=== PATIENT | male | born 1970 | race Caucasian/White ===

== ENCOUNTER 2018-08-18 05:14 | Observation (INO) ==
[2018-08-18] MEDS ORDERED: Nitroglycerin 0.4 MG TAB.SUBL SL PRN (05:20)
--- NOTE | 2018-08-18 05:25 | Emergency Department Note ---
Disposition Clinical Impression: Inferior ST segment depression, Elevated troponin Chest pain Qualifiers: Chest pain type: unspecified Qualified Code(s): R07.9 - Chest pain, unspecified Disposition: Admitted As Inpatient Condition: Fair Time of Disposition: 05:32 Chest Pain HPI - General Chief Complaint: ED Chest Pain Stated Complaint: chest pain Time Seen by Provider: 08/18/18 05:20 Vital Signs Reviewed: Yes Nursing Notes Reviewed: Yes - History of Present Illness HPI Narrative: 47-year-old male presents from home via prolonged EMS ride for evaluation of chest pain. Patient has a single episode of chest pain yesterday described as chest heaviness with dyspnea and diaphoresis. This occurred at 3 PM yesterday while working outside. It lasted approximately 15 minutes and was relieved with rest. This morning at 3 AM (2.5 hours prior to arrival), he awoke from sleep with intense sternal chest heaviness with associated dyspnea and diaphoresis. Improved with some liquid nitroglycerin 2 provided by squad as well as full dose aspirin provided by squad. He still has mild chest pain at this time. PMH: Hyperlipidemia No history of CAD or ACS, hypertension, or diabetes Habits: Currently smoker Family history: No history of ND to his knowledge his family ROS: Positive: Chest heaviness, dyspnea, diaphoresis Negative: Fever, chills, nausea, vomiting, palpitations, abdominal pain, arm pain, jaw pain, unusual back pain - Related Data Allergies Allergy/AdvReac Type Severity Reaction Status Date / Time No Known Allergies Allergy Verified 08/18/18 05:17 All systems ED: reviewed and negative except as stated. Review of Systems: As Per HPI Physical Exam Vital Signs Reviewed General: Patient is alert, oriented, and in no acute distress. Head: atraumatic, normocephalic Eye: normal appearance, PERRL, EOMI, no scleral icterus, no conjunctival i njection ENT: mucous membranes moist, normal external ear exam Neck: normal inspection, trachea midline, full ROM Chest: normal inspection, symmetric chest rise Respiratory: Good respiratory effort. Bilateral breath sounds are clear without wheezing, crackles, or rhonchi. Cardiovascular: Regular rate and rhythm. No clicks, rubs, gallops, or murmors. Normal heart sounds. Abdomen: Bowel sounds present normoactive. Abdomen is soft, nondistended, and nontender. No guarding or rebound. No organomegaly noted. Musculoskeletal: Spontaneously moving all extremities. Skin: warm, dry, intact. Neuro: GCS 15. No focal neurologic deficits observed. Psych: Patient's affect is appropriate for situation. Course Course Narrative: EMS EKG #1 12-lead EKG transmitted by EMS at 5 AM to this facility. EKG time is 04:38 showing sinus rhythm with a rate of 70. [address] depression in inferior lateral leads with no reciprocal ST elevation. EMS EKG #2 12-lead EKG transmitted by EMS at approximate 5 AM to this facility. EKG time of 04:56 interpreted as sinus rhythm with rate of 69. 1.5-[address] depression in inferior lateral leads with no reciprocal ST elevations. This is a slight progression from EMS EKG #1 above. [facility] EKG #1 EKG dated at 05:19 interpreted as sinus rhythm with a rate of 65. TX 156, QRS 89, QTC 49. Normal axis. Significant ST depression inferior lateral leads with no reciprocal ST elevation. No previous EKG for comparison within our system. We will begin Brelenta and heparin. Patient has already received aspirin. Patient's chest pain currently 04/03. My attending discussed the patient with on-call cardiology, Dr. Jessica Hickman. He recommends admission to hospitalist for continued evaluation No further recommendations at this time. I discussed the above with the admitting hospitalist, Dr. Florence, who agrees to accept the patient for continued evaluation monitoring. Vital Signs Temperature 98.6 F 08/18/18 05:18 Pulse Rate 68 08/18/18 05:18 Respiratory Rate 15 08/18/18 05:18 Blood Pressure 146/91 08/18/18 05:18 O2 Sat by Pulse Oximetry 99 08/18/18 05:18 Temperature 98.6 F 08/18/18 05:18 Pulse Rate 62 08/18/18 06:09 Respiratory Rate 15 08/18/18 06:09 Blood Pressure 131/90 08/18/18 06:09 O2 Sat by Pulse Oximetry 99 08/18/18 06:09 Oxygen Delivery Oxygen Delivery Room Air Chest Pain - Lab Data Result diagrams: 08/18/18 05:30 08/18/18 05:30 Lab Results 08/18/18 08/18/18 08/18/18 Range/Units 05:30 05:30 05:30 WBC 9.9 (4.3-11.1) K/mcL RBC 4.99 (4.19-5.50) M/mcL Hgb 15.6 (12.9-16.9) g/dL Hct 46.4 (37.5-50.1) % MCV 93.0 (83.0-100.0) fL MCH 31.3 (28.0-33.3) pg MCHC 33.6 (31.6-35.5) g/dL RDW 13.4 (11.5-14.5) % Plt Count 194 (140-400) K/mcL MPV 10.9 (9.4-12.4) fL Immature Gran % 0.4 (0-4) % Seg Neutrophils % 63.9 % Lymphocytes % 22.8 % Monocytes % 8.0 % Eosinophils % 3.8 % Basophils % 1.1 % Neutrophils # 6.3 (1.6-8.9) K/mcL Lymphocytes # 2.3 (0.6-4.6) K/mcL Monocytes # 0.8 (0.0-1.3) K/mcL Eosinophils # 0.4 (0.0-0.6) K/mcL Basophils # 0.1 (0.0-0.2) K/mcL PT 10.8 (9.4-12.1) Seconds INR 1.0 APTT 28.1 (26.0-36.0) Seconds Heparin Anti-Xa, Unfract 0.01 L (0.30-0.70) IU/mL Sodium 136 (136-145) mEq/L Potassium 3.7 (3.5-5.1) mEq/L Chloride 104 (98-107) mEq/L Carbon Dioxide 27 (23-29) mEq/L BUN 13 (6-20) mg/dL Creatinine 0.90 (0.70-1.30) mg/dL Est GFR ( Amer) > 60 (> 60) Est GFR (Non-Af Amer) > 60 (> 60) BUN/Creatinine Ratio 14 (6-26) Glucose 104 (70-105) mg/dL Calculated Osmolality 282 (280-300) Calcium 9.0 (8.6-10.3) mg/dL Troponin I 0.04 H* (< 0.04) ng/mL Heart Score - Score History: Highly Suspicious EKG: Significant ST-Depression Age: 45-65 Risk Factors: 1-2 risk factors Troponin: Less than normal limit HEART Score Total: 6 Attestation Statement - Attestation Attestation: Dr. Junior note:/ Attestation: Patient seen in conjunction with emergency medicine resident Dr. Mckay. Please see his charting for complete documentation. Spent [id number] time with the patient and I agree with the patient's treatment and disposition. Patient is been having intermittent chest pain since yesterday. Pain yesterday afternoon resolved but pain returned overnight tonight and was accompanied by diaphoresis. Dynamic EKG changes noted in lead 3 and aVF on the transmitted EKGs from the EMS transport. Pain improved on arrival. No prior such symptoms or prior evaluation for heart disease. Spoke with the on-call health record technician Dr. Jessica Hickman and informed her of the patient's history and examination EKG findings. We decided to give the patient blood thinners heparin polenta and aspirin and admit the patient hospitalist. No indication for emergent catheterization lab at this time. Initial troponin noted. Patient admitted in stable and improved condition at the time of our departure from shift at 7 AM
[2018-08-18] MEDS ORDERED: *HR* Ticagrelor 90 MG TABLET PO ONE (05:27)
[2018-08-18] MEDS ORDERED: *HR* Heparin 5,000 UNIT/ML VIAL IVP PRN ×2 (05:31)
[2018-08-18] MEDS ORDERED: *HR* Heparin 5,000 UNIT/ML VIAL IVP ONE (05:31)
[2018-08-18] MEDS ORDERED: Heparin 25,000 UNIT/250 ML D5W 25,000 UNIT/250 ML IV.SOLN IVC SCH (05:45)
[2018-08-18 05:51] LABS: Basophils # 0.1 K/mcL (0.0-0.2); Basophils % 1.1 %; Eosinophils # 0.4 K/mcL (0.0-0.6); Eosinophils % 3.8 %; Hematocrit 46.4 % (37.5-50.1); Hemoglobin 15.6 g/dL (12.9-16.9); Immature Granulocytes % 0.4 % (0-4); Lymphocytes # 2.3 K/mcL (0.6-4.6); Lymphocytes % 22.8 %; Mean Corpuscular HGB Conc 33.6 g/dL (31.6-35.5); Mean Corpuscular Hemoglobin 31.3 pg (28.0-33.3); Mean Platelet Volume 10.9 fL (9.4-12.4); Monocytes # 0.8 K/mcL (0.0-1.3); Neutrophils # 6.3 K/mcL (1.6-8.9); Platelet Count 194 K/mcL (140-400); Red Blood Count 4.99 M/mcL (4.19-5.50); Red Cell Distribution Width 13.4 % (11.5-14.5); Segmented Neutrophils % 63.9 %
[2018-08-18 05:59] LABS: Heparin anti-factor XA UFH 0.01 IU/mL (0.30-0.70); Prothrombin Time 10.8 Seconds (9.4-12.1)
[2018-08-18 06:01] LABS: Activated Partial Thrombo Time 28.1 Seconds (26.0-36.0)
[2018-08-18 06:03] LABS: BUN/Creatinine Ratio 14 (6-26); Blood Urea Nitrogen 13 mg/dL (6-20); Carbon Dioxide 27 mEq/L (23-29); Chloride 104 mEq/L (98-107); Glucose 104 mg/dL (70-105); Osmolality,Calculated 282 (280-300); Potassium 3.7 mEq/L (3.5-5.1); Sodium 136 mEq/L (136-145); eGFR For Non-African Americans > 60 (> 60)
[2018-08-18 06:11] LABS: Troponin I 0.04 ng/mL (< 0.04)
--- NOTE | 2018-08-18 08:58 | Cardiology Consult Note ---
Date of Encounter: 08/18/18 Time of Encounter: 07:45 Assessment and Plan (1) Unstable angina Current Visit: Yes Status: Acute Patient presents with symptoms concerning for unstable angina. ECG demonstrates ST depression, initial troponin 0.04. Currently c/o 5-6/10 chest pain. Continue heparin gtt, NTG, and asa. Add statin and BB. Check TTE. A/R/B of [facility] with possible PCI discussed, he is agreeable to proceed. Further recommendations to follow. Discussion w patient/family: The assessment and plan as outlined above was discussed with the patient and/or family members who expressed understanding and agreement. All questions were answered. Thank you for involving us in the care of your patient. Please call with any questions. The patient will be discussed and reviewed Dr. Hickman; changes to be made accordingly. History of Present Illness Consult date: 08/18/18 Requesting physician: Milton Mckay Consult reason: Chest pain Chief complaint: Chest pain History of present illness: Mr. Cruz is a 47 year old male with PMHx significant of tobacco abuse and HLD who presented via EMS to [facility] for chest pain. He reports midsternal chest discomfort initially started yesterday morning around 10 AM while getting camping supplies together, at that time it was described as non-radiating discomfort associated with dyspnea that lasted for several minutes. Pain recur red yesterday afternoon with radiation down bilateral arms and lasted for 20-30 minutes associated with diaphoresis and shortness of breath. Pain again returned earlier this morning and lasted for >1 hour which prompted EMS call. Pain subsided after asa and NTG administration in the squad. ECG demonstrated inferolateral ST depression. Upon arrival to ED, initial troponin was 0.04. Patient c/o 5-6 recurrent chest pain despite medical therapy. Past Med Surg Social Fam HX - Past Medical History Attestation: Yes The following information was validated with the patient. Source: patient Medical history: hyperlipidemia Psychiatric history: no psych history - Past Surgical History Surgical History: no surgical history, non-contributory - Social History Smoking Status: Current every day smoker Packs per day: 1 Smokeless Tobacco Status: No Alcohol use: occasionally Drug use: none - Family History Mother Adopted: Yes Living Status: Still Living Father Living Status: Still Living Hx Family Musculoskeletal Disorders: Yes Medications and Allergies Estazolam 2 mg HS 08/18/18 [History] Hydrocodone/Acetaminophen [Hydrocodone-Acetamin 5-300 mg] 1 each PO PRN PRN 08/18/18 [History] Allergy/AdvReac Type Severity Reaction Status Date / Time No Known Allergies Allergy Verified 08/18/18 05:17 All Systems Review: The remainder of the systems were reviewed and are negative - Cardiovascular Cardiovascular: as per HPI Physical Examination Vital Signs, Last 4 Hours Temp Pulse Resp BP Pulse Ox 08/18/18 08:00 12 155/95 08/18/18 06:09 62 15 131/90 99 08/18/18 05:18 98.6 F 68 15 146/91 99 General: Conversant, No Apparent Distress HEENT: Atraumatic, Normocephaly, Mucus Membranes Moist Neck: No JVD, Normal carotid pulses Cardiac: Reg Rate and Rhythm, Normal S1 and S2, No Murmur Lungs: Normal Breath Sounds, No Wheeze, Rales, Rhonchi Neuro: Alert and responsive, No focal deficits noted Abdomen: Soft, Non-Tender Skin: No rashes noted on visualized skin Musculoskeletal: No Chest Wall Tenderness Extremities: No Clubbing, No Cyanosis, No Edema, Normal Pulses Results 08/18/18 05:30 08/18/18 05:30 Lab Results 08/18/18 08/18/18 08/18/18 05:30 05:30 05:30 WBC 9.9 Hgb 15.6 Hct 46.4 Plt Count 194 INR 1.0 APTT 28.1 Sodium 136 Potassium 3.7 Chloride 104 Carbon Dioxide 27 BUN 13 Creatinine 0.90 Glucose 104 Calcium 9.0 Troponin I 0.04 H* Active Medications Heparin Sodium (Porcine) (Heparin) 4,000 unit IVP Q6HR PRN PRN Reason: SEE COMMENTS Stop: 02/17/19 05:32 Heparin Sodium (Porcine) (Heparin) 2,000 unit IVP Q6H PRN PRN Reason: SEE COMMENTS Stop: 02/17/19 05:32 Heparin Sodium/Dextrose (Heparin 25,000 Unit/250 Ml D5w) 25,000 unit in 250 mls @ 10.002 mls/hr IVC .Q24H THOM; Protocol Stop: 02/17/19 05:46 Last Admin: 08/18/18 06:05 Dose: 10.5 unit/kg/hr, 10 mls/hr Documented by: Nitroglycerin (Nitroglycerin) 0.4 mg SL Q5MPRN PRN PRN Reason: Chest Pain Stop: 02/17/19 05:21 - EKG Interpretation EKG results cardiology: personally reviewed Consult Discharge Plan - Plan Referrals: NONE,PCP [Primary Care Provider] -
[2018-08-18] MEDS ORDERED: Heparin 1,000 UNITS/500 mL 500 ML ONE (09:42)
[2018-08-18] MEDS ORDERED: Nitroglycerin 1,000 MCG/10 ML VIAL IV ONE (09:42)
[2018-08-18] MEDS ORDERED: *HR* Heparin 10,000 UNIT/10 ML VIAL ONE (09:42)
[2018-08-18] MEDS ORDERED: 0.9 % Sodium Chloride 1,000 ML ONE ×2 (09:42)
[2018-08-18] MEDS ORDERED: ISOVUE-370 200 ML INFUS..BTL ONE (09:42)
--- NOTE | 2018-08-18 10:07 | Pre-Sedation Evaluation ---
Pre-sedation evaluation - Pre-sedation checklist Date of procedure: 08/18/18 Procedure: [facility] Recent Vitals: Last Vital Signs Temp 98.1 F 08/18/18 09:12 Pulse 56 08/18/18 09:12 Resp 17 08/18/18 09:12 BP 148/85 08/18/18 09:12 Pulse Ox 100 08/18/18 09:20 H&P (including ROS) documented in medical record: Yes Previous reaction to sedatives/anesthetics: No Dietary Status: NPO after Midnight Airway Assessment: Patient can open mouth completely, TMJ function normal, Micrognathia (under-bite, receding chin) absent, Neck with adequate range of mo tion Dentition: No loose teeth or bridges Possible difficult airway: No ASA Classification *see protocol: CLASS II-Mild systemic disease Plan of Care: Pt appropriate candidate for procedure/moderate/conscious sedation, Risks/benefits of procedure/sedation discussed w/ patient/family Cardiac Registry (Cardio Only) - Functional Capacity Functional Capacity: < 4 METS - Clincal Frailty Scale Clinical Frailty Scale: Managing Well
[2018-08-18] MEDS ORDERED: *HR* Midazolam HCl 2 MG/2 ML VIAL ONE (10:08)
[2018-08-18] MEDS ORDERED: *HR* FentaNYL (PF) 100 MCG/2 ML VIAL ONE (10:08)
--- NOTE | 2018-08-18 10:33 | Internal Med History&Physical ---
Date of Encounter: 08/18/18 Time of Encounter: 10:33 Internal Medicine - H&P: HPI Chief complaint: CP History of present illness: 47-year-old male presents from home via prolonged EMS ride for evaluation of chest pain associated with chest heaviness dyspnea and diaphoresis that occurred while working outside yesterday and was relieved with rest. This morning he experienced awoke from sleep with intense sternal chest heaviness with associated dyspnea and diaphoresis. Improved with some liquid nitroglycerin and aspirin provided by squad. he continued to have chest pain during his ER evaluation, he is an initial set of troponin was elevated and ECG revelaed Si gnificant ST depression inferior lateral leads with no reciprocal ST elevation. the patient was started on Brelenta and heparin cardiology was consulted for possible cardiac catheterization, the patient was admitted for further evaluation and management Past Med Surg Social Fam HX - Past Medical History Medical history: hyperlipidemia Psychiatric history: no psych history - Past Surgical History Surgical History: no surgical history, non-contributory - Social History Smoking Status: Current every day smoker Packs per day: 1 Smokeless Tobacco Status: No Alcohol use: occasionally Drug use: none - Family History Mother History Unknown: Yes Adopted: Yes Living Status: Still Living Father Living Status: Still Living Hx Family Musculoskeletal Disorders: Yes Internal Medicine - H&P: Meds Estazolam 2 mg HS 08/18/18 [History] Hydrocodone/Acetaminophen [Hydrocodone-Acetamin 5-300 mg] 1 each PO PRN PRN 08/18/18 [History] Aspirin Enteric Coated [Aspirin EC] 81 mg PO DAILY #30 tablet. 08/19/18 [Rx] Atorvastatin [Lipitor] 40 mg PO HS #30 tablet 08/19/18 [Rx] Metoprolol [Lopressor] 12.5 mg PO BID #30 tablet 08/19/18 [Rx] Nicotine Patch [Nicoderm] 21 mg TD DAILY #30 patch.td24 08/19/18 [Rx] Allergy/AdvReac Type Severity Reaction Status Date / Time No Known Allergies Allergy Verified 08/18/18 05:17 All Systems PM: A 10-system review of systems was performed and is negative for pertinent findings except as documented above in the HPI. - Constitutional Vitals: Temp Pulse Resp BP Pulse Ox 98.1 F 56 17 148/85 100 08/18/18 09:12 08/18/18 09:12 08/18/18 09:12 08/18/18 09:12 08/18/18 09:20 Exam: As below - Head Head exam: Present: atraumatic, normocephalic - Eye Eye exam: Present: PERRL, conjuntiva pink, sclera anicteric Pupils: Present: PERRL - Neck Neck exam general surgery: Present: supple, trachea midline. Absent: lymphadenopathy - Respiratory Respiratory exam: Present: CTAB. Absent: accessory muscle use, rales, rhonchi, wheezes - Cardiovascular Cardiovascular exam: Present: RRR, +S1, +S2. Absent: diastolic murmur, gallop, rubs, systolic murmur - GI/Abdominal GI/Abdominal exam: Present: normal bowel sounds, soft, no peritoneal signs. Absent: distended, tenderness - Extremities Exam Extremities exam: Present: warm, radial pulses palpable and symmetrical. Absent: calf tenderness, cyanotic, pedal edema - Neurological Exam Neurological exam: Present: CN II-XII intact, oriented X3, no focal deficits. Absent: pronater drift, facial droop, speech deficit - Skin Skin exam: Present: dry, intact Internal Med - H&P Results - Labs CBC & Chem 7: 08/19/18 01:33 08/19/18 01:33 Labs: Short CBC 08/18/18 Range/Units 05:30 WBC 9.9 (4.3-11.1) K/mcL Hgb 15.6 (12.9-16.9) g/dL Hct 46.4 (37.5-50.1) % Plt Count 194 (140-400) K/mcL Neutrophils # 6.3 (1.6-8.9) K/mcL BMP 08/18/18 05:30 Sodium 136 Potassium 3.7 Chloride 104 Carbon Dioxide 27 BUN 13 Creatinine 0.90 Glucose 104 Calcium 9.0 Cardiac Enzymes 08/18/18 Range/Units 05:30 Troponin I 0.04 H* (< 0.04) ng/mL - Impressions ITS Impressions Chest X-Ray 08/18/18 05:20 IMPRESSION: Bibasilar atelectasis or pneumonitis. D/ / Gutierrez Brooks MD / Gutierrez Brooks MD Interpreting Provider: Gutierrez Brooks MD - Assessment and Plan (1) Unstable angina Status: Acute Assessment and plan: ECG reviewed and revealed Significant ST depression inferior lateral leads with no reciprocal ST elevation. We will begin Brelenta and heparin, and consult cardiology for possible cardiac catheterization and for further evaluation and management (2) Lung nodule, multiple Status: Acute Assessment and plan: I spoke with Dr. Arrington was kindly able to see the patient in consult in AM (3) Hyperlipidemia Status: Acute Assessment and plan: would obtain fasting lipid profile and continue statin Qualifiers: Hyperlipidemia type: unspecified Qualified Code(s): E78.5 - Hyperlipidemia, unspecified (4) DVT prophylaxis Status: Acute - Time Spent With Patient Total time spent is greater than 50% in coordination of care (as documented) at patient's floor/unit and/or counseling patient:
[2018-08-18] MEDS ORDERED: Naloxone 0.4 MG/ML INJ IVP PRN (10:34)
[2018-08-18] MEDS ORDERED: Ondansetron 4 MG/2 ML VIAL IVP PRN (10:34)
[2018-08-18] MEDS ORDERED: Isovue-370 500 ML BOTTLE IVP ONE (10:57)
[2018-08-18] MEDS ORDERED: 0.9 % Sodium Chloride 1,000 ML IVC SCH (11:00)
--- NOTE | 2018-08-18 11:04 | Invasive Diagnostic Lab Proc ---
Name: Artur Cruz Date of Study: 08/18/2018 Date: 1970 Ht: 72.0in Medical Record#: [id number] Age: 47 Wt: 208.34lb Gender: Male BSA: 2.17 Order #: [id number] BMI: 28.22 Physicians Procedure Physician: Jessica Hickman MD, [facility] Referring MD: Referring MD: Staff Name Position Time In Daniel, Graeme RN Nurse 10:06 AM Nimesh Alvarez RN Monitor 10:06 AM Alva Allen RN Icu Tech 10:06 AM Jessica Jose RT (R) Scrub orientee 10:06 AM Nydia Johnston RT (R) Scrub 10:06 AM Indications Indication Unstable Angina Procedures Performed Procedure L HRT ARTERY/VENTRICLE ANGIO Pre-Procedure Checklist Informed consent is complete signed and on chart. H&P is on chart. ID band is on and ID verified with patient. Patient NPO for procedure The procedure was described for the patient and questions were answered. Blood Pressure: 148/85 ECG is on chart. Rhythm: NSR Plan of Care Patient will tolerate the procedure without complications. Adequate level of comfort will be maintained. Hemodynamics will remain stable Patient will recover from procedure without complications. Respiratory function will be maintained. Cardiac rhythm will remain stable. Patient temperature will be maintained. Patient and/or family have verbalized understanding of the procedure. Patient Education Chief Complaint/Reason for Test: Cardiac Cath Developmental Category: Adult (18-64 years) Developmentally Appropriate for Age: Yes Learning Barriers: None Education Needs: Procedure Education Method: Verbal Information Taught: Cardiac Cath Educational Evaluation: Able to repeat information Intravenous Access Time IV Size Location DC'd Fluid/Drip Rate Units RN 10:06 AM 18g 1 1/" Patent On Arrival Lt Antecubital No 0.9NaCl 50 ml/hr Allergies No Known Allergies Vital Signs Time BP (mmHg) HR (bpm) O2 Sat. RR (bpm) LOC 10:11 AM / % 5 = Fully awake and oriented or at pre-proc level 10:11 AM / % 4 = Oriented but drowsy 10:11 AM 167 / 97 60 100 % 11 10:15 AM 155 / 100 60 100 % 19 10:20 AM 148 / 98 61 98 % 12 10:25 AM 140 / 89 62 99 % 23 10:30 AM 137 / 91 67 100 % 16 10:35 AM 148 / 100 65 100 % 8 Procedural Medications Time Medication Dose Units Method Given By 10:11 AM Oxygen 2 L/min nasal cannula Alva Allen RN 10:12 AM Versed 2 mg Intravenous Alva Allen RN 10:12 AM Fentanyl 50 mcg Intravenous Alva Allen RN 10:23 AM Lidocaine 2% 19 ml Subcutaneous Jessica Hickman MD, [facility] ASA Classification: CLASS II- Mild systemic disease (i.e. well-controlled diabetes, hypertension, asthma, cigarette smoking) Juliana Score Preprocedure Postprocedure Activity 2- Moves 4 extremities sustained head lift Activity 2- Moves 4 extremities sustained head lift Circulation 2- SBP +/= 20 points of pre-anesthetic level Circulation 2- SBP +/= 20 points of pre-anesthetic level Consciousness 2- Awake and alert oriented x 3 Consciousness 2- Awake and alert oriented x 3 O2 Saturation 2- Able to maintain O2 satruation of 92% on room air O2 Saturation 2- Able to maintain O2 satruation of 92% on room air Respiratory 2- Able to deep breathe and cough well Respiratory 2- Able to deep breathe and cough well Total Score 10 Total Score 10 Contrast Agent: Isovue Diagnostic Contrast: 70 ml Total Contrast: 70 ml Fluoro Dose: 27 mGy Procedure Log Time Note Enter By 10:06 AM 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 10: [facility] 10:06 AM Graeme Sanchez RN Position: Nurse Time in: : [facility] 10:06 AM Nimesh Alvarez RN Position: Monitor Time in: : [facility] 10:06 AM Alva Allen RN Position: Icu Tech Time in: : [facility] 10:06 AM Jessica Jose RT (R) Position: Scrub orientee Time in: 10: [facility] 10:06 AM Nydia Johnston RT (R) Position: Scrub Time in: 10: [facility] 10:06 AM Patient charges- Angio tray pack, Navilyst 3mm J, Pulse Oximetry and ACIST tubing and transducer [facility] 10:06 AM Physician arrived 10: [facility] 10:06 AM Rolando completed [facility] 10:06 AM Sign in performed according to hospital policy. Informed consent was obtained. [facility] 10:06 AM Procedure start 10:06 [email or web address] 10:09 AM CathStat 10:09 AM Vitals capture started with the following parameters, Patient=Adult, Interval=5 min, Initial Cmnayzpf=599 mmHg, Deflation Rate=5 mmHg, Cuff placed on Left Arm 10:10 AM Hair removed from procedure site in holding area using clippers. Bilateral groin prepped with Chloraprep by Nydia Johnston (R), then patient was draped. Skin intact. [facility] 10:11 AM HR=60 bpm, DRAM=532/97 mmhg, RlO5=569.0 %, Resp=11 B/min, Comment=NSR 10: AM Time: : Patient comfortable and pain free: Yes [facility] 10: AM Time: :LOC: 5 = Fully awake and oriented or at pre-proc level [facility] 10: AM Time: 10:11 Oxygen on at 2 L/min per [facility] AM Time: 10: Versed 2 mg Intravenous Given by [facility] 10:12 AM Time: 10:12 Fentanyl 50 mcg Intravenous Given by Alva Allen RN [facility] 10:15 AM HR=60 bpm, VBBL=228/100 mmhg, HcZ1=790.0 %, Resp=19 B/min, Comment=NSR 10:16 AM ASA Class CLASS II- Mild systemic disease (i.e. well-controlled diabetes, hypertension, asthma, cigarette smoking) [facility] 10:20 AM HR=61 bpm, IBWF=943/98 mmhg, SpO2=98.0 %, Resp=12 B/min, Comment=NSR 10:23 AM Time: : 19 ml Lidocaine 2% to right groin Subcutaneous Given by Jessica Hickman MD, [facility] 10:25 AM Access obtained by percutaneous puncture. 5Fr 10cm Terumo [place] sheath placed in right Femoral artery. [id number] [facility] 10:25 AM 0.035 145cm Navilyst 3mmJ wire [id number] [facility] 10:25 AM 5Fr FL 4 catheter inserted over the wire [facility] jcallihan 10:25 AM HR=62 bpm, HEOP=651/89 mmhg, SpO2=99.0 %, Resp=23 B/min, Comment=NSR 10:25 AM LCA angiography performed in multiple views. [email or web address] 10:26 AM Time: 10:11 Patient comfortable and pain free: Yes jcallihan 10:27 AM Time: 10:11LOC: 4 = Oriented but drowsy [email or web address] 10:27 AM Catheter removed jcallihan 10:27 AM 5Fr FR 4 catheter inserted over the wire [facility] jcallihan 10:28 AM Recorded Pressure: Ao, HR=55, Condition=Condition 1 (Aorta) Ao 133/86/108 10:28 AM RCA angiography performed in multiple views. [email or web address] 10:29 AM Catheter removed jcallihan 10:30 AM HR=67 bpm, ZPPQ=145/91 mmhg, VqC2=057.0 %, Resp=16 B/min, Comment=NSR 10:30 AM 5Fr Pigtail catheter inserted over the wire [facility] jcallihan 10:31 AM Catheter crossed the aortic valve and was selectively placed in the left ventricle. Pressures recorded on pullback for left heart catheterization. [email or web address] 10:31 AM Pressure channel 1 zeroed. 10:31 AM Recorded Pressure: LV, HR=63, Condition=Condition 1 (Left Ventricle) LV 143/-7/9 10:31 AM Recorded Pressure: LV, Ao, HR=60, Condition=Condition 1 (Left Ventricle) LV 110/31/47, (Aorta) Ao 115/63/94 10:32 AM Bolus angiogram of left Ventricle complete: 8 ml/sec for a total of 24 mls [email or web address] 10:32 AM Catheter removed jcallihan 10:33 AM Bolus angiogram of right Femoral complete: 4 ml/sec for a total of 7 mls jcallihan 10:33 AM Procedure completed at 10:33 08/18/2018 [email or web address] 10:34 AM Sign out completed: Radiation Dose 101.10 mGy, 26.7 Gy/cm2 Fluoro Time: 1.5 Isovue 370 - 200ml contrast 70 ml given by Jessica Hickman MD, [facility]. Complications: None. 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 Sedation minutes 23. Cardiac Rehab Consult needed: No. Confirmed administered medications: Yes jcallihan 10:35 AM HR=65 bpm, FXTQ=822/100 mmhg, JgK9=435.0 %, Resp=8 B/min, Comment=NSR 10:35 AM Isovue 370 - 200ml,1 Bottle(s) used. [email or web address] 10:36 AM Arterial sheath pulled, Mynx closure device used and was Successful [id number] S/N. jcallihan 10:36 AM Estimated Blood Loss: minimal [email or web address] 10:36 AM Post ECG NSR jcallihan 10:36 AM Post Blood Pressure 148/100 [email or web address] 10:36 AM 10:36 Post Pulses Bilateral DP 2+ [email or web address] 10:36 AM Information taught Cardiac Cath and Mynx jcallihan 10:36 AM Education needs Procedure, Plan of Care, and Disease Process [email or web address] 10:36 AM Learning barriers :None [email or web address] 10:36 AM Education Methods Verbal [email or web address] 10:36 AM Education evaluation Able to repeat information [email or web address] 10:37 AM Family placed in consult room. jcallihan 10:38 AM Site status No bleeding/hematoma - Rt Groin as reported by Sites, Nydia RT (R) at 10:38 [email or web address] 10:38 AM Opsite applied jcallihan 10:42 AM Right Coronary, Right Posterior Descending Arteries with Right Posterolateral and Acute Marginal branches with 40 % stenosis. If graft is supplying this area, 0 % stenosis jcallihan 10:42 AM Proximal Left Anterior Descending Coronary Artery with 30% stenosis. If graft is supplying this territory, 0 % stenosis. jcallihan 10:43 AM Mid/Distal Left Anterior Descending Coronary Artery and diagonal branches with 40% stenosis. If graft is supplying this area, 0 % stenosis jcallihan 10:43 AM Circumflex, Obtuse Marginal, Left Posterior Descending, and Left Posterolateral Coronary Arteries with 25 % stenosis. If graft is supplying this area, 0 % stenosis jcallihan 10:43 AM Lesion found in Proximal Circumflex. Pre Stenosis: 25 Pre ANTOINE Flow: [email or web address] 10:44 AM Lesion found in 1st Diagonal. Pre Stenosis: 40 Pre ANTOINE Flow: [email or web address] 10:44 AM Lesion found in Proximal LAD. Pre Stenosis: 30 Pre ANTOINE Flow: [email or web address] 10:44 AM Lesion found in Proximal RCA. Pre Stenosis: 30 Pre ANTOINE Flow: jcallihan 10:44 AM Lesion found in Mid RCA. Pre Stenosis: 40 Pre ANTOINE Flow: jcallihan 10:44 AM Lesion found in Distal RCA. Pre Stenosis: 30 Pre ANTOINE Flow: [email or web address] 10:45 AM Did you address ANTOINE flow and Dominance? YesCoronary Dominance: right [email or web address] 10:47 AM Report given to Stephon BEEBE Pt taken to Room #14. 10:47 [email or web address] 10:51 AM Patient out of room: 10:51 rosetta Complications Complication None Hemodynamics Pressures Site Systolic/A Wave Diastolic/V Wave Mean AO 133 86 108 LV 143 -7 9 LV 110 31 47 AO 115 63 94 Post Procedure Information Blood Pressure: 148/100 mmHg Rhythm: NSR Post procedural instructions were given Closure Device Time Device Success/Fail 08/18/2018 10:35:00 AM MynxGrip Successful Site Checks Time Location Status Staff Sheath In? Note 10:38 AM Rt Groin No bleeding/hematoma Sites, Nydia RT (R) Pulses Time Site Pre-Procedure Post-Procedure Note 10:36:00 AM Bilateral DP 2+ Updated by Graeme Sanchez RN on 08/18/2018 10:58:58 AM electronically signed on 08/18/2018 10:59:37 AM with status of Final
--- NOTE | 2018-08-18 11:46 | Event Note ---
Date of Encounter: 08/18/18 Time of Encounter: 11:30 - Cardiology Event Note [facility] completed--non-obstructive CAD, medical therapy recommended. Reviewed with Dr. Hickman, CTA to r/o dissection ordered due to continue chest discomfort--will defer Hospitalist to follow-up on results. Recommend GI eval (if CT negative) to r/u acute cholecystitis. No further recommendations from Cardiology as inpt. Will sign-off. Recommend outpatient follow-up with PCP.
[2018-08-18] MEDS ORDERED: *HR* Morphine 2 MG/ML SYRINGE IVP PRN (12:55)
[2018-08-18] MEDS: Nicotine 14 MG PATCH.TD24 TD SCH (17:13)
[2018-08-18] MEDS ORDERED: GI Cocktail 40 ML EACH PO ONE (20:48)
[2018-08-19 02:19] LABS: Basophils # 0.1 K/mcL (0.0-0.2); Basophils % 0.7 %; Eosinophils # 0.4 K/mcL (0.0-0.6); Eosinophils % 2.9 %; Hematocrit 49.8 % (37.5-50.1); Hemoglobin 16.9 g/dL (12.9-16.9); Immature Granulocytes % 0.4 % (0-4); Lymphocytes # 2.3 K/mcL (0.6-4.6); Mean Corpuscular HGB Conc 33.9 g/dL (31.6-35.5); Mean Corpuscular Volume 91.4 fL (83.0-100.0); Monocytes % 7.7 %; Neutrophils # 9.5 K/mcL (1.6-8.9); Platelet Count 221 K/mcL (140-400); Red Blood Count 5.45 M/mcL (4.19-5.50); Red Cell Distribution Width 13.5 % (11.5-14.5); Segmented Neutrophils % 71.3 %
[2018-08-19 02:27] LABS: Prothrombin Time 11.5 Seconds (9.4-12.1)
[2018-08-19 02:30] LABS: Activated Partial Thrombo Time 31.6 Seconds (26.0-36.0)
[2018-08-19 02:41] LABS: Alanine Aminotransferase 19 Units/L (7-52); Albumin 4.3 g/dL (3.5-5.7); Albumin/Globulin Ratio 1.4 (1.1-2.2); Alkaline Phosphatase 74 Units/L (34-104); Aspartate Amino Transferase 70 Units/L (13-39); BUN/Creatinine Ratio 11 (6-26); Bilirubin,Total 0.6 mg/dL (0.3-1.0); Blood Urea Nitrogen 9 mg/dL (6-20); Calcium 9.2 mg/dL (8.6-10.3); Carbon Dioxide 23 mEq/L (23-29); Chloride 106 mEq/L (98-107); Chol/HDL Ratio 6.9 (0-4.9); Cholesterol 250 mg/dL (< 200); Glucose 118 mg/dL (70-105); HDL Cholesterol 36 mg/dL (40-59); LDL Cholesterol,Calculated 179 mg/dL (0-99); Magnesium 2.1 mg/dL (1.6-2.6); Osmolality,Calculated 284 (280-300); Phosphorous 2.7 mg/dL (2.7-4.5); Potassium 3.6 mEq/L (3.5-5.1); Sodium 137 mEq/L (136-145); Total Protein 7.3 g/dL (6.4-8.9); Triglycerides 176 mg/dL (< 150); eGFR For Non-African Americans > 60 (> 60)
[2018-08-19 07:20] VITALS: BP 103/64
[2018-08-19] MEDS ORDERED: Aspirin Enteric Coated 81 MG Tablet PO SCH (09:00)
[2018-08-19] MEDS: Nicotine 14 MG PATCH.TD24 TD SCH (09:30)
--- NOTE | 2018-08-19 10:23 | Discharge Summary ---
- NOTES TO OUTPATIENT PROVIDER Notes to Outpatient Provider: f/u with PCP in one week. f/u with Surgery on one week. If you delvin abdominal pain, epigastric pain please go to near by ER. Please quit smoking. You need to f/u with your PCP for repeat CT of chest in 6 weeks for your lung noudles. Date of Encounter: 08/19/18 Time of Encounter: 10:21 - Discharge Diagnosis (1) Unstable angina Priority: Primary Status: Acute (2) Elevated troponin Priority: Primary Status: Acute (3) Lung nodule, multiple Priority: Secondary Status: Acute (4) Hyperlipidemia Priority: Secondary Status: Acute Qualifiers: Hyperlipidemia type: unspecified Qualified Code(s): E78.5 - Hyperlipidemia, unspecified Hospital course: Mr. Cruz is a 47-year-old male with known past medical history of hyperlipidemia and chronic tobacco dependence pt presented [place] ER via [place] with severe chest pain / heaviness located sub sternally and non radiating. He felt some chest discomfort earlier in the day. Later that night he had pizza and few hours later he developed severe CP associated with nausea. In the in the ER his initial set of troponin was elevated and ECG revelaed Significant ST depression inferior lateral leads with no reciprocal ST elevation. He was admitted in the hospital and placed him on tele. His troponin were peaked at 9.37. He was evaluated by [facility] [employer] [facility] and did LHC. His LHC came back as non-obstructive coronary artery disease, the left ventricle is normal and has normal contractility EF 65% . Recommend Optimal medical therapy of patient's disease and aggressive risk factor modification. His CTA of chest did not show any PE, however he does have scatted lung nodules b/l, largest measuring upto 7 mm, so counseled to quit smoking and recommend to f.u with PCP for f/u CT of chest in 6 weeks. His US of Abd showed multiple gallstones with a slightly thickened gallbladder wall. He does not want to go for surgery here, since he lives near [place] would like to f.u with his PCP and wanted to go for surgery in [place]. Now pt is able to tolerate PO intake well. So will d /c him home in stable condition today. - Time Spent with Patient Total time spent providing and/or coordinating discharge services: - Discharge Medications Prescriptions: New Aspirin Enteric Coated [Aspirin EC] 81 mg PO DAILY #30 tablet. Atorvastatin [Lipitor] 40 mg PO HS #30 tablet Metoprolol [Lopressor] 12.5 mg PO BID #30 tablet Nicotine Patch [Nicoderm] 21 mg TD DAILY #30 patch.td24 Continued Estazolam 2 mg HS Hydrocodone/Acetaminophen [Hydrocodone-Acetamin 5-300 mg] 1 each PO PRN PRN PRN Reason: Pain Home Medications: Estazolam 2 mg HS 08/18/18 [History] Hydrocodone/Acetaminophen [Hydrocodone-Acetamin 5-300 mg] 1 each PO PRN PRN 08/18/18 [History] Aspirin Enteric Coated [Aspirin EC] 81 mg PO DAILY #30 tablet. 08/19/18 [Rx] Atorvastatin [Lipitor] 40 mg PO HS #30 tablet 08/19/18 [Rx] Metoprolol [Lopressor] 12.5 mg PO BID #30 tablet 08/19/18 [Rx] Nicotine Patch [Nicoderm] 21 mg TD DAILY #30 patch.td24 08/19/18 [Rx] Allergies/Adverse Reactions: Allergy/AdvReac Type Severity Reaction Status Date / Time No Known Allergies Allergy Verified 08/18/18 05:17 Date of admission: 08/18/18 06:49 Primary care physician: PCP NONE Consults: 08/18/18 06:31 Consult to Cardiology [CONS] Stat Comment: Consulting Provider: Cardiology Success Reason for Consult: Concern for NSTEMI Call Completed: Yes 08/18/18 16:29 Consult to Pulmonology [CONS] Routine Consulting Provider: [facility] Success Reason for Consult: Scattered noncalcified nodules are present bilaterally, the largest measuring up to 7 mm. Time Notified: 16:29 Call Completed: Yes - Constitutional Vitals: Temp Pulse Resp BP Pulse Ox 99.2 F 72 18 103/64 94 08/19/18 07:20 08/19/18 07:20 08/19/18 07:20 08/19/18 07:20 08/19/18 07:38 General appearance: Present: A&O X 3, no acute distress, answers questions appropriately Exam: Gen: Alert, awake, Oriented to time,place and person Chest: Diminished breath sounds B/L, No wheezing, No crackles, No rales Heart: S1S2+ RRR No murmurs Abd: Soft, NT, BS +, No organomegaly Ext: No edema, pulses are palpable, No calf tenderness Neuro : Benign findings Skin: No rash. - Patient Status Disposition: Home, Self-Care Condition: Good Overall status at discharge: patient is back to baseline - Discharge Instructions Follow Up With: NONE,PCP [Primary Care Provider] - - Diet and Activity Activity: increase activity as tolerated Diet: low salt diet
--- NOTE | 2018-08-19 22:58 | Electrocardiograph Report ---
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
== END 2018-08-19 11:30 | disposition home or self-care (01) ==
LOC: EMEROOARM 05:14 → 3BNU 05:14 → SUATTDRO 06:49 → 3BNU 08:30
PROVIDERS: ADMIT Internal Medicine; ATTEND Family Medicine